=== PATIENT | male | born 1990 | race Caucasian/White ===

== ENCOUNTER 2017-11-29 16:54 | Emergency (ER) | payer SELFPAY, OTHER ==
[2017-11-29] MEDS: methylPREDNISolone SOD SUCC PF 125 MG/2 ML VIAL. IM (17:19)
== END 2017-11-29 17:35 | disposition home or self-care (01) ==
LOC: ER 17:35
DX: L23.7 Allergic contact dermatitis due to plants, except food (principal); J45.909 Unspecified asthma, uncomplicated; Z79.899 Other long term (current) drug therapy; Z88.1 Allergy status to other antibiotic agents
CPT/HCPCS: 96372; 99283; J2930

== ENCOUNTER 2018-02-11 21:05 | Emergency (ER) | payer OTHER ==
[2018-02-11] MEDS: IV NORMAL SALINE 1000ML BAG 1,000 ML IV (22:25)
[2018-02-11] MEDS: ONDANSETRON PF 4 MG/2 ML VIAL. IV (22:25)
[2018-02-11] MEDS: diphenhydrAMINE 50 MG/ML VIAL IVP (22:26)
[2018-02-11] MEDS: KETOROLAC 30 MG/ML INJ. IV (22:26)
== END 2018-02-11 23:07 | disposition home or self-care (01) ==
LOC: ER 23:07
DX: R51 Headache (principal); R11.0 Nausea; F10.129 Alcohol abuse with intoxication, unspecified; J45.909 Unspecified asthma, uncomplicated
CPT/HCPCS: 96374; 96375; 99284-25; J1200; J1885; J2405; J7030

== ENCOUNTER 2018-03-13 13:43 | Emergency (ER) | payer OTHER ==
[~2018-03-13] VITALS: Ht 175.3 cm; Wt 74.8 kg
[~2018-03-13 13:43] MED LIST: CYCL10TA2 PO; HYDR-971 PO; METH4TAB2 PO; PROVENTIL HFA6.7 GM IH; ZOLP5TAB PO
[2018-03-13 13:45] VITALS: BP 155/93
[2018-03-13] MEDS ORDERED: IBUPROFEN 600 MG TABLET. PO ONE (14:30)
--- NOTE | 2018-03-13 14:51 | RAD ---
Acute abdomen series. History: Intermittent right lower quadrant pain for a year, worse this morning. Comparison: None. Findings: Frontal chest radiograph. Cardiac silhouette appears within normal limits for size. No pneumoperitoneum, pneumothorax, or large pleural effusion seen. No focal infiltrate is identified. Supine and upright AP views of the abdomen. Bowel gas pattern is nonspecific, without evidence of small bowel obstruction. Impression: No acute abnormality identified in the chest or abdomen. Electronically signed by: Des Contreras MD (03/13/2018 2:47 PM) [place] [id number]
--- NOTE | 2018-03-13 15:00 | PHYS DOC ---
Past Medical History Past Medical History: Asthma Past Surgical History: No Surgical History Alcohol Use: Occasionally Drug Use: None Adult General Chief Complaint Chief Complaint: RIB PAIN HPI HPI 27-year-old male presents to ER with complaints of one year history of right upper abd/base of rt rib pain which has been intermittent in nature. Patient denies abdominal distention. Pt reports appetite has been NL with no N/V/D. He reports eating/drinking does not increase pain. Patient reports he has been having regular bowel movements denying any dark tarry or bloody stools. Patient denies any recent injury. Patient reports he has not been taking any over-the- counter medications as he doesn't like to take medicine- though did take ibuprofen a few days ago with no improvement in symptoms. Pt reports last year he had been drinking etoh frequently and has in the past several months reduced alcohol intake as he had got a new job. He reports he had felt last year his pain was associated with drinking however with minimal alcohol intake since new job is uncertain of cause of ongoing rt rib/upper abd. pain. He reports with his work he lifts multiple heavy boxes and with lifting he does have increased rt side rib/upper abd pain. He denies CP/SOA/palpitations. He denies swelling in extremities. He reports he has been urinating without sxs. He denies previous hernia hx. Pt denies any back pain, numbness/tingling, fatigue/weakness , or fever/chills. Pt reports he had couple of drinks this past weekend but denies any alcohol in past 48 hours. He reports he has concerns of going to work today d/t pain increasing with bending and lifting objects. Review of Systems Review of Systems Constitutional: Denies fever or chills [] Eyes: Denies change in visual acuity, redness, or eye pain [] HENT: Denies nasal congestion or sore throat [] Respiratory: Denies cough or shortness of breath. Reports pain at base of rt ribs Cardiovascular: Denies chest pain or palpitations GI: Denies nausea, vomiting, bloody stools or diarrhea. Reports he has had good appetite. Denies abdominal distention. Reports pain at base of rt ribs also is in rt upper abd. : Denies dysuria or hematuria [] Musculoskeletal: Denies back pain or joint pain [] Integument: Denies rash or skin lesions [] Neurologic: Denies headache, focal weakness or sensory changes. Denies dizziness /lightheadedness All other systems were reviewed and found to be within normal limits, except as documented in this note. Current Medications Current Medications Current Medications Medications (Trade) Dose Ordered Sig/Med Start Time Stop Time Status Last Admin Dose Admin Ibuprofen (Motrin) 600 mg 1X ONCE 03/13/18 14:30 03/13/18 14:31 DC 03/13/18 14:44 600 MG Allergies Allergies Allergies Coded Allergies Type Severity Reaction Last Updated Verified erythromycin base Allergy Mild HIVES 03/29/16 Yes Physical Exam Physical Exam Constitutional: Well developed, well nourished, no acute distress, non-toxic appearance. [] HENT: Normocephalic, atraumatic, bilateral external ears normal, oropharynx moist, nose normal. [] Eyes: PERRLA, conjunctiva normal- no sclera icteric, no discharge. [] Neck: Normal range of motion, no tenderness, supple, no stridor. [] Cardiovascular: Regular heart rate rhythm Lungs & Thorax: Bilateral breath sounds clear to auscultation- tender to palp. base of rt anterior ribs with no crepitus/deformity/palp mass- able to take deep breath with no increase in pain Abdomen: Bowel sounds normal, soft, tender to palpation right upper quadrant into rt anterior ribs with no palpable masses- no distention Skin: Warm, dry, no erythema, no rash. [] Back: No tenderness, no CVA tenderness. [] Extremities: No tenderness, no cyanosis, no clubbing, ROM intact, no edema. [] Neurologic: Alert and oriented X 3, normal motor function, normal sensory function, no focal deficits noted. [] Psychologic: Affect normal, judgement normal, mood normal. [] Current Patient Data Vital Signs Vital Signs Date Time Temp Pulse Resp B/P (MAP) Pulse Ox O2 Delivery O2 Flow Rate FiO2 03/13/18 13:45 98.3 93 16 155/93 (113) 98 Room Air 98.3 EKG EKG [] Radiology/Procedures Radiology/Procedures Acute abdomen series. History: Intermittent right lower quadrant pain for a year, worse this morning. Comparison: None. Findings: Frontal chest radiograph. Cardiac silhouette appears within normal limits for size. No pneumoperitoneum, pneumothorax, or large pleural effusion seen. No focal infiltrate is identified. Supine and upright AP views of the abdomen. Bowel gas pattern is nonspecific, without evidence of small bowel obstruction. Impression: No acute abnormality identified in the chest or abdomen. Electronically signed by: Des Velazquez MD (03/13/2018 2:47 PM) [facility] DICTATED and SIGNED BY: DES VELAZQUEZ MD DATE: 03/13/18 1446 Course & Med Decision Making Course & Med Decision Making Imaging studies reviewed. (See chart for details) Discussion was had with pt regarding sxs with options on testing- discussed labs and imaging- pt is agreeable with abd. xray as he has limited time today d/ t having to be at work this afternoon. Pt is agreeable with dose of Ibuprofen as he hasn't taken anything for pain today. 1450: Discussed xray results with pt with no acute findings reported. Pt reports he has some improvement in rt rib/abd discomfort w/dose of Ibuprofen. Discussed with heavy lifting at work his sxs may be r/t muscle strain with improved sxs following anti-inflammatory medication- education on proper body mechanics discussed. Discharge instructions discussed and education provider on signs and symptoms to return to ER for. Discussion had with pt regarding alcohol cessation and if abd pain worsens recommended f/u with GI doctor. Will provide pt with clinic referral information if rt rib pain continues for options on f/u. Patient agreeable with discharge plan as discussed. Patient requested work note will provide with discharge paperwork as he is preferring not to go to work today. 03/14/18: 8:15 AM: I did discuss the case with DEMARIO Mcdowell, specifially as to why lab work checking LFT's was not performed. She informed me that she felt patient's symptoms were musculoskeletal in origin and not related to live abnormalities, and the patient was not interested in having lab work performed. I have otherwise reviewed this chart and agree with documented history and physical, assessment and plan. [place] Disclaimer Dragon Disclaimer This electronic medical record was generated, in whole or in part, using a voice recognition dictation system. Departure Departure Impression: Primary Impression: Abdominal pain Disposition: HOME, SELF-CARE Condition: STABLE Referrals: NO PCP (PCP) ANGIE STALEY MD gastrointestinal doctor Patient Instructions: Abdominal Pain Additional Instructions: If symptoms persist you will need follow-up with primary doctor and/or gastrointestinal doctor. Tylenol and/or Ibuprofen as needed- avoid alcohol. LAWRENCE MCDOWELL APRN Mar 13, 2018 15:00 MANUEL RAMACHANDRAN MD Mar 14, 2018 08:27
== END 2018-03-13 15:11 | disposition home or self-care (01) ==
LOC: ER 13:43
DX: R10.11 Right upper quadrant pain (principal); R07.81 Pleurodynia; J45.909 Unspecified asthma, uncomplicated; Z88.1 Allergy status to other antibiotic agents
CPT/HCPCS: 74022; 99284

== ENCOUNTER 2018-06-19 18:47 | Emergency (ER) | payer SELFPAY ==
[~2018-06-19] VITALS: Ht 175.3 cm; Wt 74.8 kg
[~2018-06-19 18:47] MED LIST changes: +HYDR-3164 PO; -HYDR-971 PO
[2018-06-19 19:30] VITALS: BP 109/67
[2018-06-19] MEDS ORDERED: BENZONATATE 100 MG CAPSULE. PO ONE (20:00)
[2018-06-19] MEDS ORDERED: IPRATRPIUM/ALBUTEROL 0.5/2.5MG 3 ML NEBU. NEB ONE (20:00)
[2018-06-19] MEDS ORDERED: predniSONE 10 MG TABLET PO ONE (20:00)
[2018-06-19] MEDS ORDERED: PRED50TA PO (20:27)
[2018-06-19] MEDS ORDERED: VENTOLIN HFA18 GM INH (20:27)
[2018-06-19] MEDS ORDERED: AMOX1TAB61 PO (20:27)
[2018-06-19] MEDS ORDERED: BENZ100C PO (20:27)
--- NOTE | 2018-06-19 20:27 | PHYS DOC ---
Past Medical History Past Medical History: Asthma Past Surgical History: No Surgical History Alcohol Use: Occasionally Drug Use: None Adult General Chief Complaint Chief Complaint: SORE THROAT HPI HPI Patient is a 28 year old male with history of asthma, smoking, who presents today complaining of cough, nasal congestion and sore throat that began a week ago. Patient states he feels he has a sinus infection. He states he has been trying [id number] remedies with no relief. He states symptoms have gotten worse in the last couple days. 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 Review of Systems Review of Systems Constitutional: Denies fever or chills [] Eyes: Denies change in visual acuity, redness, or eye pain [] HENT: Reports sore throat, nasal congestion Respiratory: Reports cough, denies shortness of breath [] Cardiovascular: No additional information not addressed in HPI [] GI: Denies abdominal pain, nausea, vomiting, bloody stools or diarrhea [] : Denies dysuria or hematuria [] Musculoskeletal: Denies back pain or joint pain [] Integument: Denies rash or skin lesions [] Neurologic: Denies headache, focal weakness or sensory changes [] All other systems were reviewed and found to be within normal limits, except as documented in this note. Current Medications Current Medications Current Medications Medications (Trade) Dose Ordered Sig/Med Start Time Stop Time Status Last Admin Dose Admin Albuterol/ Ipratropium (Duoneb) 3 ml 1X ONCE 06/19/18 20:00 06/19/18 20:01 DC 06/19/18 20:15 3 ML Benzonatate (Tessalon Perle) 100 mg 1X ONCE 06/19/18 20:00 06/19/18 20:01 DC 06/19/18 19:57 100 MG Prednisone (Prednisone) 50 mg 1X ONCE 06/19/18 20:00 06/19/18 20:01 DC 06/19/18 19:57 50 MG Allergies Allergies Allergies Coded Allergies Type Severity Reaction Last Updated Verified erythromycin base Allergy Mild HIVES 03/29/16 Yes Physical Exam Physical Exam Constitutional: Well developed, well nourished, no acute distress, non-toxic appearance. [] HENT: Normocephalic, atraumatic, bilateral external ears normal, oropharynx moist, no oral exudates, Sounds congested nasally, bilateral nasal turbinates are boggy and erythematous. Mild maxillary sinus tenderness. Eyes: PERRLA, EOMI, conjunctiva normal, no discharge. [] Neck: Normal range of motion, no tenderness, supple, no stridor. [] Cardiovascular:Heart rate regular rhythm, no murmur [] Lungs & Thorax: Within noted throughout the posterior lung bases. Small amount of wheezing to anterior upper lung bases. Abdomen: Bowel sounds normal, soft, no tenderness, no masses, no pulsatile masses. [] Skin: Warm, dry, no erythema, no rash. [] Back: No tenderness, no CVA tenderness. [] Extremities: No tenderness, no cyanosis, no clubbing, ROM intact, no edema. [] Neurologic: Alert and oriented X 3, normal motor function, normal sensory function, no focal deficits noted. [] Psychologic: Affect normal, judgement normal, mood normal. [] Current Patient Data Vital Signs Vital Signs Date Time Temp Pulse Resp B/P (MAP) Pulse Ox O2 Delivery O2 Flow Rate FiO2 06/19/18 19:30 98.0 61 17 109/67 (81) 98 Room Air 98.0 EKG EKG [] Radiology/Procedures Radiology/Procedures [] Course & Med Decision Making Course & Med Decision Making Pertinent Labs and Imaging studies reviewed. (See chart for details) This is a 28-year-old male patient presenting to the ED today with symptoms of asthma exacerbation as well as acute sinusitis. He states symptoms of good 10 worse in the last couple days despite using ilfq-hah-vnbwqxf remedies. He was wheezing on arrival to the ED. Given a DuoNeb treatment, lungs cleared up, breathing back to baseline. Also started on prednisone. Will be discharged with a demented, prednisone for 4 more days Tessalon Perles and albuterol breathing treatments. Follow-up with PCP in 1-2 weeks, encouraged to consider smoking cessation. Vitals in the ED temperature 98.0 heart rate 61 O2 sats 98% in room air blood pressure 109/67 respirations 17. Dragon Disclaimer Dragon Disclaimer This electronic medical record was generated, in whole or in part, using a voice recognition dictation system. Departure Departure Impression: Primary Impression: Asthma exacerbation Additional Impressions: Acute sinusitis Smoking addiction Disposition: 01 HOME, SELF-CARE Condition: STABLE Referrals: NO PCP (PCP) follow up with your doctor next week Patient Instructions: Asthma, Adult, Sinusitis, Smoking Cessation, Tips For Success Additional Instructions: You were evaluated in the emergency room and noted to have asthma exacerbation and a sinus infection. Take the prescribed medications as ordered, consider smoking cessation. Follow-up with your doctor in 1-2 weeks. Come back to the ED at any point symptoms worsen. Scripts Albuterol Sulfate (VENTOLIN HFA INHALER) 18 Gm Hfa.aer.ad 2 PUFF INH Q4HRS for FOR ASTHMA, #1 INHALER 0 Refills Prov: DELMY MONTOYA APRN 06/19/18 Prednisone (PREDNISONE) 50 Mg Tablet 1 TAB PO DAILY, #4 TAB Prov: DELMY MONTOYA APRN 06/19/18 Benzonatate (TESSALON PERLE) 100 Mg Capsule 1 CAP PO TID, #30 CAP Prov: DELMY MONTOYA APRN 06/19/18 Amoxicillin/Potassium Clav (AUGMENTIN 875-125 TABLET) 1 Each Tablet 1 TAB PO BID, #20 TAB Prov: DELMY MONTOYA APRN 06/19/18 Problem Qualifiers Primary Impression: Asthma exacerbation Asthma severity: mild Asthma persistence: intermittent Qualified Codes: J45.21 - Mild intermittent asthma with (acute) exacerbation Additional Impressions: Acute sinusitis Sinusitis location: maxillary Recurrence: non-recurrent Qualified Codes: J01.00 - Acute maxillary sinusitis, unspecified DELMY MONTOYA APRN Jun 19, 2018 20:27
== END 2018-06-19 20:35 | disposition home or self-care (01) ==
LOC: ER 18:47
DX: J45.21 Mild intermittent asthma with (acute) exacerbation (principal); J01.00 Acute maxillary sinusitis, unspecified; F17.200 Nicotine dependence, unspecified, uncomplicated; Z88.1 Allergy status to other antibiotic agents
CPT/HCPCS: 99283; J7512; J7620

== ENCOUNTER → 2018-10-15 22:36 | Emergency (ER) | payer SELFPAY ==
[~2018-10-15 22:36] MED LIST changes: +ALBU2.5V8 IH; +AMOX1TAB61 PO; +BENZ100C PO; +PRED50TA PO; -PROVENTIL HFA6.7 GM IH; +VENTOLIN HFA18 GM INH
== END | disposition left against medical advice (07) ==
LOC: ER 22:36
DX: M25.532 Pain in left wrist (principal); Z53.21 Procedure and treatment not carried out due to patient leaving prior to being seen by health care provider

== ENCOUNTER 2018-10-16 17:23 | Emergency (ER) | payer SELFPAY ==
[~2018-10-16] VITALS: Ht 177.8 cm; Wt 74.8 kg
[2018-10-16 18:25] VITALS: BP 121/66
[2018-10-16] MEDS ORDERED: HYDROcodone/APAP 5/325MG 1 TAB TABLET PO ONE (18:45)
--- NOTE | 2018-10-16 19:09 | PHYS DOC ---
Past Medical History Past Medical History: Asthma Past Surgical History: No Surgical History Additional Information: 08/02 ppd Alcohol Use: Rarely Drug Use: None Adult General Chief Complaint Chief Complaint: WRIST PAIN HPI HPI Patient is a 28 year old male who presents with moving furniture on Tuesday when he is pushing the couch upward and he felt a pulling pain in his left wrist. Patient has pain and slight swelling to the radial side of his left wrist. He rates the pain 7 out of 10. He states he's been taking ibuprofen 800 mg for the pain. Review of Systems Review of Systems Constitutional: Denies fever or chills [] Eyes: Denies change in visual acuity, redness, or eye pain [] HENT: Denies nasal congestion or sore throat [] Respiratory: Denies cough or shortness of breath [] Cardiovascular: No additional information not addressed in HPI [] GI: Denies abdominal pain, nausea, vomiting, bloody stools or diarrhea [] : Denies dysuria or hematuria [] Musculoskeletal: Denies back pain. left wrist joint pain [] Integument: Denies rash or skin lesions [] Neurologic: Denies headache, focal weakness or sensory changes [] Endocrine: Denies polyuria or polydipsia [] All other systems were reviewed and found to be within normal limits, except as documented in this note. Current Medications Current Medications Current Medications Medications (Trade) Dose Ordered Sig/Med Start Time Stop Time Status Last Admin Dose Admin Acetaminophen/ Hydrocodone Bitart (Lortab 5/325) 1 tab 1X ONCE 10/16/18 18:45 10/16/18 18:46 DC 10/16/18 19:32 1 TAB Allergies Allergies Allergies Coded Allergies Type Severity Reaction Last Updated Verified erythromycin base Allergy Mild HIVES 03/29/16 Yes Physical Exam Physical Exam Constitutional: Well developed, well nourished, no acute distress, non-toxic appearance. [] HENT: Normocephalic, atraumatic, bilateral external ears normal, oropharynx moist, no oral exudates, nose normal. [] Eyes: PERRLA, EOMI, conjunctiva normal, no discharge. [] Neck: Normal range of motion, no tenderness, supple, no stridor. [] Cardiovascular:Heart rate regular rhythm, no murmur [] Lungs & Thorax: Bilateral breath sounds clear to auscultation [] Abdomen: Bowel sounds normal, soft, no tenderness, no masses, no pulsatile masses. [] Skin: Warm, dry, no erythema, no rash. [] Back: No tenderness, no CVA tenderness. [] Extremities: radial sided left wrist tenderness, no cyanosis, no clubbing, ROM intact, no edema. [] Neurologic: Alert and oriented X 3, normal motor function, normal sensory function, no focal deficits noted. [] Psychologic: Affect normal, judgement normal, mood normal. [] Current Patient Data Vital Signs Vital Signs Date Time Temp Pulse Resp B/P (MAP) Pulse Ox O2 Delivery O2 Flow Rate FiO2 10/16/18 19:32 16 99 Room Air 10/16/18 18:25 98.5 88 121/66 (84) 98.5 EKG EKG [] Radiology/Procedures Radiology/Procedures [] Course & Med Decision Making Course & Med Decision Making Patient is a 28 year old male who presents with moving furniture on Tuesday when he is pushing the couch upward and he felt a pulling pain in his left wrist. Patient has pain and slight swelling to the radial side of his left wrist. He rates the pain 7 out of 10. He states he's been taking ibuprofen 800 mg for the pain. Left wrist on the radial side has 1+ edema. Patient has full range of motion in his fingers and wrist. Radial pulses present and strong. Cap refill less than 3 seconds. There is no bruising or deformity or abrasion seen. There is tenderness to the left wrist on the radial side. Skin pink warm and dry. Mucous membranes are moist. Signs are within normal limits. Wrist x-ray is read by Dr. Sanchez and shows no acute findings. Patient to follow-up with primary care provider and use Benjy bandage if needed. Dragon Disclaimer Dragon Disclaimer This electronic medical record was generated, in whole or in part, using a voice recognition dictation system. Departure Departure Impression: Primary Impression: Wrist pain, left Disposition: 01 HOME, SELF-CARE Condition: STABLE Referrals: NO PCP (PCP) SHALONDA VEE II, MD Patient Instructions: Contusion, Wrist Pain Additional Instructions: Follow-up with your primary care provider or with orthopedic if her pain is not getting better within the next week or 2. Continue to take ibuprofen with a prescription. Try using ice to help with swelling or pain. Scripts Hydrocodone/Apap 5-325 (NORCO 5-325 TABLET) 1 Each Tablet 1 TAB PO PRN Q6HRS PRN for PAIN, #8 TAB 0 Refills Prov: ISMAEL KINGSTON APRN 10/16/18 ISMAEL KINGSTON APRN Oct 16, 2018 19:09
[2018-10-16] MEDS ORDERED: HYDR-3164 PO (21:31)
--- NOTE | 2018-10-16 22:38 | RAD ---
WRIST 3V LEFT History: LEFT DISTAL FOREARM PAIN AFTER INJURY X1 DAY AGO. SWELLING Comparison: None. Findings: 3 views left wrist are submitted. No acute fracture or dislocation is identified by radiographs. There is some deformity of the fifth metacarpal likely due to old injury. Impression: 1. No acute osseous abnormality is identified by radiographs. Electronically signed by: Faraz Rick MD (10/16/2018 10:35 PM) [facility]
== END 2018-10-16 22:04 | disposition home or self-care (01) ==
LOC: ER 17:23
DX: M25.532 Pain in left wrist (principal); R22.32 Localized swelling, mass and lump, left upper limb; J45.909 Unspecified asthma, uncomplicated; F17.200 Nicotine dependence, unspecified, uncomplicated; Z88.1 Allergy status to other antibiotic agents; X50.9XXA Other and unspecified overexertion or strenuous movements or postures, initial encounter; Y93.89 Activity, other specified; Y92.89 Other specified places as the place of occurrence of the external cause; Y99.8 Other external cause status
CPT/HCPCS: 73110; 99283